=== PATIENT | male | born 1930 | race Caucasian/White ===

== ENCOUNTER 2016-11-29 18:48 | Observation (INO) | payer MEDICARE, OTHER ==
[~2016-11-29] VITALS: Ht 190.5 cm; Wt 69.8 kg
[~2016-11-29 18:48] MED LIST: AMBIEN10 MG PO; BETAPACE 80 MG80 MG PO; CARAFATE1 G PO; ELIQUIS2.5 MG PO; EZFE 200200 MG PO; GLUCOTROL 5 MG T5 MG PO; K-TAB10 MEQ PO; LASIX40 MG PO; LEVAQUIN500 MG PO; LEVOXYL75 MCG PO; PRAVACHOL40 MG PO; PREMARIN0.625 MG PO; PRILOSEC20 MG PO; PROPAFENONE HC300 MG PO; RESTORIL15 MG PO; RESTORIL22.5 MG PO; XARELTO15 MG PO
[2016-11-29 19:16] LABS: APPEARANCE CLEAR (CLEAR); BILIRUBIN NEGATIVE (NEGATIVE); COLOR YELLOW (YELLOW); GLUCOSE NEGATIVE (NEGATIVE); KETONE NEGATIVE (NEGATIVE); LEUKOCYTE ESTERASE NEGATIVE (NEGATIVE); NITRITE NEGATIVE (NEGATIVE); PROTEIN TRACE mg/dL (NEGATIVE); UROBILINOGEN NORMAL (NORMAL)
[2016-11-29 19:43] LABS: BASOPHILS 0.2 % (0-2); EOSINOPHILS 0.7 % (0-7); HEMATOCRIT 26.1 % (42.0-54.0); HEMOGLOBIN 8.4 g/dL (13.5-17.5); IMMATURE GRANULOCYTES 0.3 % (0-5); LYMPHOCYTES 15.8 % (15-50); MCH 28.5 pg (26.0-34.0); MCHC 32.2 g/dL (31.0-37.0); MCV 88.5 fL (80.0-100.0); MEAN PLATELET VOLUME 8.5 fL (7.4-10.4); MONOCYTES 11.2 % (2-11); NEUTROPHILS 71.8 % (40-80); RBC 2.95 10x6/uL (4.20-6.10); RDW 16.3 % (11.5-14.5)
[2016-11-29 19:47] LABS: PLATELET COUNT 447 10x3/uL (130-400)
[2016-11-29 20:13] LABS: KETONE - SERUM NEGATIVE (NEGATIVE)
[2016-11-29 21:21] LABS: ALBUMIN 2.7 g/dL (3.4-5.0); ALKALINE PHOSPHATASE 48 U/L (46-116); ALT (SGPT) 11 U/L (10-68); CALC OSMOLALITY 285 mosm/kg (275-300); CALCIUM 9.3 mg/dL (8.5-10.1); CARBON DIOXIDE 27.1 mmol/L (21.0-32.0); CHLORIDE - SERUM 100 mmol/L (98-107); CREATININE - SERUM 1.4 mg/dL (0.6-1.3); POTASSIUM - SERUM 3.6 mmol/L (3.5-5.1); PROTEIN - SERUM 7.4 g/dL (6.4-8.2); SODIUM 139 mmol/L (136-145); UREA NITROGEN 28 mg/dL (7-18); eGFR NON AFRICAN AMERICAN 51 mL/min (90-120)
[2016-11-29 21:22] LABS: GLUCOSE 137 mg/dL (74-106)
--- NOTE | 2016-11-29 22:16 | NUR ---
REPORT RECEIVED FROM [facility] FROM ER. PT WILL COME TO ROOM 2106 VIA WHEELCHAIR WITH FAMILY AT SIDE
--- NOTE | 2016-11-29 22:42 | NUR ---
PT ARRIVED TO ROOM 2106 VIA WHEEL CHAIR. ASSISTED BY HOSPITAL STAFF AND FAMILY. PT AMBULATED TO BED WITH X2 ASSIST. PT HAS A 20G IV S/L ON LEFT FOREARM. PT IN PJ'S AND SLIP ON SHOES. FAMILYS NUMBERS FOR EMERGENCYS OBTAINED SILVANA (DAUGHTER) [phone] FIRST CONTACT SECOND IS RALF' [phone]. PT DENIES ANY NEEDS. NO S/S OF DISTRESS. BED LOW AND CALL LIGHT WITHIN REACH. WILL CPOC
--- NOTE | 2016-11-30 01:37 | NUR ---
PT RESTING IN BED. ASSESSMENT DONE. PT DENIES ANY PAIN AT THIS TIME. STATES HE WILL CALL WHEN WANTS HIS PAIN PILL..PT IS 6'3 INCHES TALL. PULLED UP IN BED AND REPOSITIONED. PT HAS A URINAL AT BED SIDE TO USE AND VERBALIZED UNDERSTANDING WHEN TALKING ABOUT NOT GETTING OUT OF BED ALONE. PT GIVEN A SANDWINCH AND MILK FOR A SNACK R/T PT BEING HUNGRY. V/S WITHIN NORMAL RANGE. PT DENIES ANY NEEDS. NO S/S OF DISTRESS. WILL CPOC
[2016-11-30 04:09] VITALS: BP 148/84; BMI 19.7
[2016-11-30 05:00] VITALS: BP 127/79
--- NOTE | 2016-11-30 07:30 | NUR ---
AM ROUNDS- PT'S CALL LIGHT ON. PT WANTS HELP USING URINAL, HELPED PT TO STAND UP AND USE URINAL. PT ALSO C/O PAIN 10/12, ADMINISTERED 5MG OG NORCO AT THIS TIME. HELPED PT BACK TO BED, AND REPOSITIONED HIM IN BED. PT DENIES ANY NEEDS AT THIS TIME. BED LOW AND WHEELS LOCKED, BEDSIDE RAILS X2, LT FA IV SL. RESP EVEN AND UNLABORED. PT DENIES ANY OTHER NEEDS AT THIS TIME. CALL LIGHT IN REACH, NAD NOTED, WILL CONTINUE TO MONITOR.
[2016-11-30] MEDS ORDERED: FLORINEF 0.1 M0.1 MG PO (07:46)
[2016-11-30] MEDS ORDERED: MEGACE400 MG/10 PO (07:46)
[2016-11-30] MEDS ORDERED: GLUCOPHAGE500 MG PO (07:47)
[2016-11-30] MEDS ORDERED: ARICEPT5 MG PO (07:48)
[2016-11-30] MEDS ORDERED: ULTRAM50 MG PO (07:48)
[2016-11-30 08:00] VITALS: BP 152/69
--- NOTE | 2016-11-30 08:41 | NUR ---
AM MEDS GIVEN CRUSHED AND IN APPLE SAUCE. PT KEEPS ASKING " WHAT AM I SUPPOSE TO DO". HELPED PT REPOSITION IN BED. PT WANTS TO GET A HOLD OF DAUGHTER, [employer] CONSULTANT CALLED AND LEFT VOICEMAIL. PT DENIES ANY OTHER NEEDS AT THIS TIME. CALL LIGHT IN REACH, NAD NOTED, WILL CONTINUE TO MONITOR.
--- NOTE | 2016-11-30 11:19 | NUR ---
NORCO 5MG GIVEN FOR PAIN LEVEL OF 10/10. PT UP TO SIDE OF BED, SEEMS VERY CONFUSED, STATES " I HAVE TO GO HOME, I CAN NOT HANDLE BEING HERE". INFORMED PT THAT HE IS IN THE HOSPITAL. PT DENIES ANY OTHER NEEDS AT THIS TIME. CALL LIGHT IN REACH, NAD NOTED, WILL CONTINUE TO MONITOR.
[2016-11-30 12:00] VITALS: BP 119/60
[2016-11-30 12:20] VITALS: Ht 190.5 cm; Wt 69.8 kg
[2016-11-30 16:00] VITALS: BP 135/74
--- NOTE | 2016-11-30 16:34 | NUR ---
NORCO 5MG GIVEN FOR PAIN LEVEL OF 7/10. PT UP TO SIDE OF BED, FAMILY AT BEDSIDE, NAD NOTED, WILL CONTINUE TO MONITOR.
--- NOTE | 2016-11-30 19:10 | NUR ---
3MG OF MORPHINE GIVEN FOR PAIN LEVEL OF 7/10. PT DENIES ANY OTHER NEEDS AT THIS TIME. FAMILY AT BEDSIDE, NAD NOTED, WILL CONTINUE TO MONITOR.
[2016-11-30 20:08] VITALS: BP 125/83
--- NOTE | 2016-11-30 20:26 | NUR ---
NIGHT TIMES MEDS GIVEN AT THIS TIME. PT DENIES ANY NEEDS AT THIS TIME. FAMILY AT BEDSIDE, NAD NOTED, WILL CONTINUE TO MONITOR.
--- NOTE | 2016-11-30 22:25 | NUR ---
NO CHANGE FROM PREVIOUS ASSESMENT. PT IN BED, WITH EYES CLOSED, RESP EVEN AND UNLABORED. CALL LIGHT IN REACH, NAD NOTED, WILL CONTINUE TO MONITOR.
[2016-12-01] VITALS (16 sets, daily range): BP systolic 117–149; BP diastolic 63–81
[2016-12-01 04:54] LABS: BASOPHILS 0.1 % (0-2); EOSINOPHILS 0.8 % (0-7); HEMATOCRIT 24.8 % (42.0-54.0); HEMOGLOBIN 8.1 g/dL (13.5-17.5); IMMATURE GRANULOCYTES 0.3 % (0-5); LYMPHOCYTES 17.6 % (15-50); MCH 28.8 pg (26.0-34.0); MCHC 32.7 g/dL (31.0-37.0); MCV 88.3 fL (80.0-100.0); MEAN PLATELET VOLUME 8.8 fL (7.4-10.4); MONOCYTES 12.8 % (2-11); NEUTROPHILS 68.4 % (40-80); PLATELET COUNT 364 10x3/uL (130-400); RBC 2.81 10x6/uL (4.20-6.10); RDW 16.4 % (11.5-14.5)
[2016-12-01 05:01] LABS: ANION GAP 11.2 mmol/L (8-16); CALCIUM 8.7 mg/dL (8.5-10.1); CARBON DIOXIDE 28.4 mmol/L (21.0-32.0); CREATININE - SERUM 1.2 mg/dL (0.6-1.3); POTASSIUM - SERUM 3.6 mmol/L (3.5-5.1)
--- NOTE | 2016-12-01 06:22 | HP ---
PATIENT: ABHAY THORNTON MEDICAL RECORD: [id number] ACCOUNT: [id number] LOCATION:D. D.2106 : 29 ADMISSION DATE: 11/29/16 HISTORY AND PHYSICAL EXAMINATION DATE OF ADMISSION: 11/30/2016 CHIEF COMPLAINT: Left flank pain. HISTORY OF PRESENT ILLNESS: The patient is an 86-year-old gentleman who for the past month has complained of intermittent pain in the left flank. He presented to the Emergency Room where he was found to have mild hydronephrosis on the left. No evidence of stone, otherwise, CT of the abdomen and pelvis unremarkable. It was felt that the patient should be admitted. PAST MEDICAL HISTORY: Significant that he has had a history of hypertension. 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 He has also had atrial fibrillation, diabetes mellitus. He has had congestive heart failure, hyperlipidemia, anemia. He has had an abnormal gait, chronic kidney disease, mild BPH. PAST SURGICAL HISTORY: He had an EGD with dilatation in 2008. FAMILY HISTORY: Mother had cerebrovascular accident at 85. Father had heart disease at 67. MEDICATIONS: Include fludrocortisone 0.1 mg p.o. every day. He is also on Lasix 40 mg p.o. b.i.d., glimepiride 5mg 1 p.o. q. day, iron 200 mg p.o. b.i.d., levothyroxine 75 mcg once a day, metformin 500 mg 1 tablet b.i.d., omeprazole 40 mg once a day, KCl 10 mEq 1 p.o. b.i.d., Pravastatin 40 mg once a day, Premarin 0.65 one p.o. every day, sotalol 80 mg p.o. b.i.d., Carafate 1 g before meals and at bedtime, donepezil 5 mg p.o. q. day. ALLERGIES: He has known drug allergies. SOCIAL HISTORY: The patient was born and raised in [place] area. He is a retired from construction. HABITS: None. 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 REVIEW OF SYSTEMS: CONSTITUTIONAL: He denies any headaches, seizure or syncope. Denied change in visual or auditory acuity. PULMONARY: He denies any shortness of breath, cough, congestion, history of asthma or bronchitis. CARDIOVASCULAR: No chest pain, palpitation, PND or orthopnea. GASTROINTESTINAL: No chronic nausea, vomiting, melena or hematochezia. GENITOURINARY: No urgency, frequency, or dysuria. PHYSICAL EXAMINATION: GENERAL: He is afebrile. VITAL SIGNS: His blood pressure 148/84, pulse ox 96% on room air. He is afebrile. His pulse is 77. GENERAL: He is alert and oriented times 3. HEENT: Head is normocephalic. No lesions. Ears, TMs clear. Eyes, pupils HISTORY AND PHYSICAL [id number] CAUGHMAN,ABHAY JONATHAN equal, round and reactive to light. His extraocular movements are intact. Nasal cavity, oral cavity and oropharynx clear. NECK: Supple. There is no adenopathy. HEART: Has a regular rate and rhythm without any murmurs, gallops or rubs. LUNGS: Clear. ABDOMEN: Soft, bowel sounds are positive. He has left CVA tenderness. He has no edema. LABORATORY DATA: His white count was 9, hemoglobin 8.4, hematocrit 26.1, his platelets were 447. He had a sodium of 139, potassium 3.6, chloride 100, CO2 is 27, BUN is 28, creatinine 1.4, blood sugar 137. Urinalysis showed trace protein. He has no leukocytes, no blood can be appreciated. CT scan did reveal focal mild left hydroureter without obstructing calculus. ASSESSMENT: 1. 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 2. History of diabetes mellitus, history of atrial fibrillation, congestive heart failure, anemia, history of arteriovenous malformation of the small intestines. PLAN: The patient will be admitted for pain control. Urology consultation will be obtained. The patient will also receive 1 unit of packed red blood cells, IV hydration as well as pain control. TRANSINT:[id number] Voice Confirmation ID: [id number] DOCUMENT ID: [id number] SCOTT STONE MD at 0622 CC: [id number] DICTATION DATE: 11/30/16720 PLASTICS PLATER: 11/30/16 0912 [facility] IN [place] [id number] [place] [address]
--- NOTE | 2016-12-01 17:51 | NUR ---
ALERT. SITUATIONAL CONFUSION. FAMILY AT BEDSIDE. SITTING ON SIDE OF BED. INITIATE UNIT 1 PRBC TRANSFUSION. START TRANSFUSION RATE AT 100mL/HR FOR FIRST 15MINS. REMAIN IN ROOM FIRST 15 MINS TO MONITOR FOR ANY REACTION. T-98, R-18, P-83, BP-141/78. BED LOCKED AND LOW. CALL LIGHT IN REACH. TWO SIDERAILS UP.
--- NOTE | 2016-12-01 18:42 | NUR ---
20 GAUGE IV PLACED TO RIGHT FOREARM X 1 STICK. GOOD BLOOD RETURN, EASY FLUSH. TAPED, DATED AND SECURED. PATIENT TOLERATED IV PLACEMENT WELL. BLOOD INFUSING ORDERED AT THIS TIME. CALL LIGHT WITHIN REACH.
--- NOTE | 2016-12-01 19:16 | NUR ---
Received patient in bed with 1st Unit of PRBC infusing into lower right arm PIV. Slight leakage at PIV insertion site, no signs of infiltration. Patient denies any pain or discomfort. VSS and being checked per protocol. Awake and lert at this time. Oriented to person, place, time and situation. Will continue to monitor.
--- NOTE | 2016-12-01 21:15 | NUR ---
First Unit of PRBC has infused. No untoward signs or symptoms, patient states he is feeling well. VS have remained stable throughout process.
--- NOTE | 2016-12-01 23:55 | NUR ---
Assisted up to BR, voided, ready for Second Unit of PRBCs, VS taken T = 98.6 P = 82, R = 18, BP = 148/81. Second Unit started.
[2016-12-02] VITALS (12 sets, daily range): BP systolic 118–148; BP diastolic 63–80
--- NOTE | 2016-12-02 02:45 | NUR ---
Blood has transfused. VS remain stable, no voiced complaints. Patient remains asymptomatic. Will order lab recheck in the morning.
--- NOTE | 2016-12-02 04:51 | NUR ---
Patient sleeping, respirations easy and regular, no signs of distress. IV infusing of 1/2NS with 20mEq KCL @50ml/hr. PIV in right lower arm has dried drainage in transparent dressing, no signs of infiltration. Checked with saline flush, good blood return and flushes well.
--- NOTE | 2016-12-02 04:54 | NUR ---
No need to reorder Hgb and Hct this morning, already has orders for CBC and BMP this morning.
[2016-12-02 05:08] LABS: BASOPHILS 0.2 % (0-2); EOSINOPHILS 1.1 % (0-7); HEMATOCRIT 28.7 % (42.0-54.0); HEMOGLOBIN 9.8 g/dL (13.5-17.5); IMMATURE GRANULOCYTES 0.3 % (0-5); LYMPHOCYTES 17.2 % (15-50); MCH 29.3 pg (26.0-34.0); MCHC 34.1 g/dL (31.0-37.0); MCV 85.9 fL (80.0-100.0); MEAN PLATELET VOLUME 8.5 fL (7.4-10.4); MONOCYTES 10.9 % (2-11); NEUTROPHILS 70.3 % (40-80); PLATELET COUNT 350 10x3/uL (130-400); RBC 3.34 10x6/uL (4.20-6.10); RDW 16.9 % (11.5-14.5); WBC 8.7 10x3/uL (4.8-10.8)
[2016-12-02 05:16] LABS: CALC OSMOLALITY 278 mosm/kg (275-300); CALCIUM 8.6 mg/dL (8.5-10.1); CARBON DIOXIDE 25.5 mmol/L (21.0-32.0); CHLORIDE - SERUM 101 mmol/L (98-107); GLUCOSE 104 mg/dL (74-106); SODIUM 138 mmol/L (136-145); UREA NITROGEN 21 mg/dL (7-18); eGFR NON AFRICAN AMERICAN 75 mL/min (90-120)
[2016-12-02] MEDS ORDERED: RELAFEN500 MG PO (07:13)
[2016-12-02] MEDS ORDERED: TYLENOL W/CODEI1 TAB PO (07:16)
--- NOTE | 2016-12-02 12:00 | NUR ---
ALERT AND ORIENTED TO SELF. VERY FORGETFUL. RT FA IV INFILTRATED. DC RT FA IV TIP INTACT. DISCHARGE INSTRUCTIONS GIVEN TO JYOTHI NEIL VIA TELEPHONE. DISCHARGE PAPERS SIGNED ON CHART. WRITTEN PRESCRIPTION FOR TYLENOL THREE PROVIDED. ESCORT TO RIDE VIA WHEELCHAIR. REMAINS FREE FROM INJURY.
== END 2016-12-02 14:49 | disposition home or self-care (01) ==
LOC: D.ER 18:48 → D.M2 21:49 → OBSVTIME 21:49 → D.M2 21:49
PROVIDERS: Emergency Medicine; ADMIT Family Medicine
DX: M48.06 Spinal stenosis, lumbar region (principal); M46.96 Unspecified inflammatory spondylopathy, lumbar region; N13.4 Hydroureter; I48.91 Unspecified atrial fibrillation; I11.0 Hypertensive heart disease with heart failure; I50.9 Heart failure, unspecified; E78.5 Hyperlipidemia, unspecified; D64.9 Anemia, unspecified; F10.21 Alcohol dependence, in remission

== ENCOUNTER 2016-12-12 08:16 | Inpatient (IN) | payer MEDICARE, OTHER ==
[~2016-12-12] VITALS: Ht 190.5 cm; Wt 71.7 kg
[2016-12-12] VITALS (9 sets, daily range): BP systolic 123–146; BP diastolic 60–83; BMI 19.7
[~2016-12-12 08:16] MED LIST changes: +ARICEPT5 MG PO; +FLORINEF 0.1 M0.1 MG PO; +GLUCOPHAGE500 MG PO; +MEGACE400 MG/10 PO; +RELAFEN500 MG PO; +TYLENOL W/CODEI1 TAB PO; +ULTRAM50 MG PO
[2016-12-12 09:15] LABS: BASOPHILS 0.1 % (0-2); EOSINOPHILS 0 % (0-7); HEMATOCRIT 33.6 % (42.0-54.0); HEMOGLOBIN 10.9 g/dL (13.5-17.5); IMMATURE GRANULOCYTES 0.2 % (0-5); LYMPHOCYTES 9.4 % (15-50); MCH 28.7 pg (26.0-34.0); MCHC 32.4 g/dL (31.0-37.0); MCV 88.4 fL (80.0-100.0); MEAN PLATELET VOLUME 8.8 fL (7.4-10.4); MONOCYTES 4.2 % (2-11); NEUTROPHILS 86.1 % (40-80); PLATELET COUNT 297 10x3/uL (130-400); RDW 16.6 % (11.5-14.5); WBC 10.8 10x3/uL (4.8-10.8)
[2016-12-12 09:25] LABS: INR 1.04 (0.85-1.17); PROTIME 13.5 SECONDS (11.6-15.0)
[2016-12-12 09:33] LABS: BILIRUBIN - TOTAL 0.84 mg/dL (0.2-1.3); CALCIUM 9.3 mg/dL (8.5-10.1); CARBON DIOXIDE 20.8 mmol/L (21.0-32.0); CREATININE - SERUM 1.5 mg/dL (0.6-1.3); POTASSIUM - SERUM 3.8 mmol/L (3.5-5.1); PROTEIN - SERUM 8.2 g/dL (6.4-8.2)
[2016-12-12 09:37] LABS: MAGNESIUM - SERUM 2.3 mg/dL (1.8-2.4)
--- NOTE | 2016-12-12 14:14 | NUR ---
BIOPSY FORCEPS USED TO CHECK FOR STRICTURE, NO BIOPSY TAKEN. BASKET USED TO REMOVE MULTIPLE FOOD PARTICLES FROM ESOPHAGUS
--- NOTE | 2016-12-12 15:00 | NUR ---
PATIENT TO ROOM AT THIS TIME WITH IV INTACT. NO COMPLAINTS AT THIS TIME. VS STABLE. FAMILY AT BEDSIDE. CALL LIGHT WITHIN REACH.
--- NOTE | 2016-12-12 18:49 | NUR ---
PATIENT IN BED WITH IV INTACT. FAMILY AT BEDSIDE. BED ALARM ON. CALL LIGHT WITHIN REACH.
--- NOTE | 2016-12-12 23:26 | NUR ---
PT'S SON LEFT FOR THE NIGHT. PT FREQUENTLY TRYING TO CLIMB OUT OF BED. SHORT TERM MEMORY LOSS. REORIENT FREQUENTLY AND EXPLAIN TO HIM WHY HE HAS TO BE NPO. GIVING HIM MOIST SPONGES FOR MOUTH. WILL CONTINUE TO MONITOR. BED ALARM ON AND WORKING.
[2016-12-13 00:52] VITALS: BP 142/72
[2016-12-13 04:00] VITALS: BP 148/73
--- NOTE | 2016-12-13 06:40 | NUR ---
PT HAS NOT SLEPT ALL NIGHT. KEEPS TRYING TO CLIMB OUT OF BED. CONSTANTLY ASKS FOR SOMETHING TO EAT OR DRINK. DOES NOT UNDERSTAND WHY HE HAS TO BE NPO. WE CONTINUE TO EXPLAIN EVERY TIME HE ASKS. STOOD PT UP BESIDE BED TO VOID 4 TIMES. PT IS UNSTEADY AND LEANS HEAVILY ON NURSE TO STAND. PUT PT ON BEDSIDE COMMODE ONCE FOR BM BUT HE DID NOT HAVE ONE. PT DOES NOT UNDERSTAND WHY HE CANNOT GET OUT OF BED WHENEVER HE WANTS. TEACHING ON FALL PRECAUTIONS. BED ALARM ON AND WORKING. INSTRUCT HAT BODY INSPECTOR LIGHT EACH TIME NURSE LEAVES ROOM.
[2016-12-13 06:45] LABS: BASOPHILS 0 % (0-2); EOSINOPHILS 0 % (0-7); HEMATOCRIT 31.4 % (42.0-54.0); HEMOGLOBIN 10.1 g/dL (13.5-17.5); IMMATURE GRANULOCYTES 0.2 % (0-5); LYMPHOCYTES 5.5 % (15-50); MCH 28.4 pg (26.0-34.0); MCHC 32.2 g/dL (31.0-37.0); MCV 88.2 fL (80.0-100.0); MEAN PLATELET VOLUME 9.5 fL (7.4-10.4); MONOCYTES 3.1 % (2-11); NEUTROPHILS 91.2 % (40-80); PLATELET COUNT 300 10x3/uL (130-400); RBC 3.56 10x6/uL (4.20-6.10); RDW 16.7 % (11.5-14.5)
[2016-12-13 06:51] LABS: ANION GAP 15.3 mmol/L (8-16); CALCIUM 8.8 mg/dL (8.5-10.1); CREATININE - SERUM 1.4 mg/dL (0.6-1.3); POTASSIUM - SERUM 3.3 mmol/L (3.5-5.1)
[2016-12-13 06:54] LABS: PROTIME 15.6 SECONDS (11.6-15.0)
[2016-12-13 06:57] LABS: INR 1.25 (0.85-1.17)
--- NOTE | 2016-12-13 07:00 | NUR ---
REPORT RECIEVED ASSUMED CARE. PATIENT IN BED WITH IV INTACT. CALL LIGHT WITHIN REACH.
[2016-12-13 08:15] VITALS: BP 163/75
[2016-12-13 11:32] LABS: APPEARANCE HAZY (CLEAR); COLOR DK YELLOW (YELLOW); GLUCOSE NEGATIVE (NEGATIVE); KETONE NEGATIVE (NEGATIVE); LEUKOCYTE ESTERASE TRACE (NEGATIVE); NITRITE NEGATIVE (NEGATIVE); PH 5.5 (5.0-6.0); PROTEIN 3+ mg/dL (NEGATIVE)
[2016-12-13 11:33] LABS: BILIRUBIN NEGATIVE (NEGATIVE); UROBILINOGEN NORMAL (NORMAL)
[2016-12-13 11:45] LABS: AMORPHOUS SEDIMENT <1+ /lpf (NONE SEEN); BACTERIA MODERATE /hpf (NONE SEEN); EPITHELIAL CELLS 0-5 /hpf (0-5); GRANULAR CAST OCC /lpf (NONE SEEN); HYALINE CAST OCC /lpf (NONE SEEN); MUCUS <1+ /lpf (NONE SEEN); RED CELLS - URINE 0-5 /hpf (0-5)
[2016-12-13 13:04] VITALS: BP 160/85
[2016-12-13 15:58] VITALS: BP 166/92
--- NOTE | 2016-12-13 16:14 | NUR ---
IV RESTARTED IN LEFT WRIST X 3 STICKS. PATIENT TOLERATED WITH SMALL AMOUNT OF PAIN. IV IN LEFT AC REMOVED DUE TO LEAKING AND PAIN. CATH TIP INTACT. FAMILY AT BEDSIDE. CALL LIGHT WITHIN REACH.
--- NOTE | 2016-12-13 18:41 | NUR ---
PATIENT IN BED WITH IV INTACT. TRYING TO GET OUT OF BED. BA ON. EXPLAINED TO PATIENT HE CAN NOT GET UP WITHOUT ASSIST. PATIENT CONFUSED AND DEMENTED. VERBALIZED UNDERSTANDING. WILL CONTINUE TO MONITOR. CALL LIGHT WITHIN REACH.
[2016-12-13 19:00] VITALS: BP 152/82
[2016-12-14 04:00] VITALS: BP 186/81
[2016-12-14 05:52] LABS: ALBUMIN 2.5 g/dL (3.4-5.0); ANION GAP 15.5 mmol/L (8-16); BILIRUBIN - TOTAL 0.66 mg/dL (0.2-1.3); CALCIUM 9.1 mg/dL (8.5-10.1); CARBON DIOXIDE 22.7 mmol/L (21.0-32.0); CREATININE - SERUM 1.1 mg/dL (0.6-1.3); POTASSIUM - SERUM 3.2 mmol/L (3.5-5.1); PROTEIN - SERUM 7.1 g/dL (6.4-8.2)
--- NOTE | 2016-12-14 07:05 | NUR ---
REPORT RECIEVED, ASSUMED CARE OF PT. PT RESTING WITH EYES SHUT. NO SIGNS OF ACUTE DISTRESS. BED IN LOWEST POSITION, SIDE RAILS UP X 2, CALL LIGHT WITHIN REACH.
[2016-12-14 07:12] LABS: BASOPHILS 0 % (0-2); EOSINOPHILS 0 % (0-7); HEMATOCRIT 30.7 % (42.0-54.0); HEMOGLOBIN 10.1 g/dL (13.5-17.5); IMMATURE GRANULOCYTES 0.2 % (0-5); LYMPHOCYTES 10.7 % (15-50); MCH 28.9 pg (26.0-34.0); MCHC 32.9 g/dL (31.0-37.0); MCV 87.7 fL (80.0-100.0); MEAN PLATELET VOLUME 9.4 fL (7.4-10.4); MONOCYTES 6.8 % (2-11); NEUTROPHILS 82.3 % (40-80); PLATELET COUNT 280 10x3/uL (130-400); RDW 16.6 % (11.5-14.5); WBC 12.6 10x3/uL (4.8-10.8)
[2016-12-14 09:26] VITALS: BP 153/86
[2016-12-14 12:47] VITALS: BP 143/84
--- NOTE | 2016-12-14 13:00 | NUR ---
PT RESTING IN BED, NO CHANGE FROM SHIFT ASSESSMEN. FAMILY AT BED SIDE. NO COMPLAINTS AT THIS TIME. BED IN LOWEST POSITION, SIDE RAILS UP X 2, CALL LIGHT WITHIN REACH.
[2016-12-14 14:52] VITALS: Ht 190.5 cm; Wt 71.7 kg
[2016-12-14 16:55] VITALS: BP 147/80
--- NOTE | 2016-12-14 17:08 | NUR ---
Patient Name: ABHAY THORNTON Admission Status: ER Accout number: [id number] Admission Date: 12-12-2016 : 1929 Admission Diagnosis: Attending: SCOTT STONE Current LOS: 2 Anticipated DC Date: 12-16-2016 Planned Disposition: Home with Hospice Primary Insurance: MEDICARE A & B Discharge Planning Comments: CM MET WITH PATIENTS DAUGHTER (SILVANA) AND SON (GUILLERMINA) REGARDING D/C NEEDS AND PLANS. PATIENT IS CURRENTLY ON HOSPICE WITH HOSPICE HOME CARE AT HIS HOME. PATIENTS DAUGHTER SILVANA IS POA AND CAREGIVER IN HIS HOME. PATIENTS PCP IS DR. STONE AND DR. YULIA MOORE IS HIS HOSPICE PHYSICIAN. PATIENT WILL RETURN HOME ON HOSPICE PER DAUGHTER AFTER SURGERY FOR HIS ESOPHAGEAL OBSTRUCTION. DAUGHTER DOES NOT WANT ANY TUBE FEEDINGS SHE STATED IF THAT IS RECOMMENDED. CM WILL CONTINUE TO FOLLOW PATIENT WITH D/C NEEDS AND PLANS. PCP DR. CHASE MOORE HOSPICE PHYSICIAN SILVANA (DAUGHTER) [phone] OR [phone] GUILLERMINA (SON) [phone] Facilities Project Manager: Ani Cook Is the patient Alert and Oriented? No 0 * How many steps to enter\exit or inside your home? 0 0 * PCP DR. STONE PCP DR. YULIA MOORE [facility] 0 * Pharmacy HOSPICE HOME CARE 0 * Preadmission Environment Hospice 0 * ADLs Total Dependent 0 * Other Equipment HOSPICE PROVIDES ALL EQUIPMENT NEEDED 0 * List name and contact numbers for known caregivers / representatives who currently or will assist patient after discharge: SILVANA FERNANDES (DAUGHTER-CAREGIVER AND POA) [phone] OR [phone] GUILLERMINA (SON) [phone] * Community resources currently utilized None 0 * Please name any agencies selected above. HOSPICE HOME CARE 0 * Additional services required to return to the preadmission environment? Yes 0 * Can the patient safely return to the preadmission environment? Yes 0 * Has this patient been hospitalized within the prior 30 days at any hospital? Yes 0 Grand Total: 0
--- NOTE | 2016-12-14 19:20 | NUR ---
PT RETURNED FROM GI LAB, INSTRUCTED PT NEEDED ICE CHIPS ONLY TONIGHT, PT WAS ABLE TO URINATE 200CC 3 PERSON ASSIST, PT DOES NEED TO BE SUCTIONED BECAUSE MUCUS IS VERY THICK. NO OTHER NEEDS AT THIS TIME WILL CONTINUE TO MONITOR
--- NOTE | 2016-12-14 19:39 | NUR ---
PT BACK FROM EGD. FAMILY AT BEDSIDE. NO SIGNS OF ACUTE DISTRESS. BED IN LOWEST POSITION, SIDE RAILS UP X 2, CALL LIGHT WITHIN REACH.
[2016-12-15] VITALS: BP 151/86
[2016-12-15 04:00] VITALS: BP 154/80
[2016-12-15 04:47] LABS: BASOPHILS 0 % (0-2); EOSINOPHILS 0.7 % (0-7); HEMATOCRIT 29.5 % (42.0-54.0); HEMOGLOBIN 9.5 g/dL (13.5-17.5); IMMATURE GRANULOCYTES 0.2 % (0-5); LYMPHOCYTES 12.5 % (15-50); MCH 28.4 pg (26.0-34.0); MCHC 32.2 g/dL (31.0-37.0); MCV 88.3 fL (80.0-100.0); MEAN PLATELET VOLUME 9.3 fL (7.4-10.4); MONOCYTES 6.9 % (2-11); NEUTROPHILS 79.7 % (40-80); PLATELET COUNT 217 10x3/uL (130-400); RBC 3.34 10x6/uL (4.20-6.10); RDW 16.7 % (11.5-14.5)
[2016-12-15 04:58] LABS: CALC OSMOLALITY 294 mosm/kg (275-300); CALCIUM 8.4 mg/dL (8.5-10.1); CARBON DIOXIDE 23.8 mmol/L (21.0-32.0); CHLORIDE - SERUM 112 mmol/L (98-107); GLUCOSE 178 mg/dL (74-106); POTASSIUM - SERUM 3.4 mmol/L (3.5-5.1); SODIUM 144 mmol/L (136-145); UREA NITROGEN 25 mg/dL (7-18); eGFR NON AFRICAN AMERICAN 75 mL/min (90-120)
--- NOTE | 2016-12-15 07:30 | NUR ---
RECIEVED REPORT, ASSUMED CARE OF PT. FAMILY AT BEDSIDE. PT RESTING, EASILY AROUSED. L WRIST IV INTACT, PATENT, FLUIDS RUNNING ORDERED, DRSG C/D/I. HOB ELEVATED AT 45 DEGREES. BED ALARM ON, BED IN LOWEST POSITION, SIDE RAILS UP X 2, CALL LIGHT WITHIN REACH.
--- NOTE | 2016-12-15 09:00 | NUR ---
PT FAMILY REQUESTS TO GIVE MEDICATIONS WHEN PT WAKES UP, RESTING, STAYED UP MOST OF THE NIGHT.
--- NOTE | 2016-12-15 09:05 | EC ---
PATIENT:ABHAY THORNTON DATE OF SERVICE: 12/12/16 SEX: M MEDICAL RECORD: [id number] DATE OF : 29 LOCATION:[facility] AGE OF PATIENT: 86 ADMISSION DATE: 12/12/16 REFERRING PHYSICIAN: INTERPRETING PHYSICIAN: AMAYA FRANKLIN MD ECHOCARDIOGRAM REPORT ECHO CHARGES 4 ECHO COMPLETE CLINICAL DIAGNOSIS: CHF ECHOCARDIOGRAPHIC MEASUREMENTS (adult normal given) AC root (d.<3.7cm) 4.2 cm LV Septum d (<1.2 cm> 1.7 cm Valve Excursion 2.3 cm LV Septum (systole) 2.2 cm Left Atria (s.<4.0cm> 3.7 cm LVPW d(<1.2cm) 1.4 cm RV (d.<2.3cm) 2.4 cm LVPW (sytole) 1.9 cm LV diastole(<5.6CM) 5.1 cm MV E-F(>70mm/sec) cm LV systole 4.0 cm LVOT Diameter 2.1 cm MV exc.(>10mm) cm Est.ejection fraction (50-75%) % Pericardial Effusion Y DOPPLER: LVIT cm/sec A 53.0 cm/sec E 45.0 cm/sec LA cm/sec RVSP 44.0 mmHg LVOT 65.0 cm/sec AOP1/2T m/s Asc. Ao 96.0 cm/sec RVOT 61.0 cm/sec RA cm/sec PA 88.0 cm/sec AV Gradient Peak 3.7 mmHg AV Mean 1.8 mmHg AV Area 2.3 cm MV Gradient Peak 2.1 mmHg MV Mean 0.98 mmHg MV Area cm COMMENTS: Trial Consultant: Juan ACKERMANOE Boring Mill Operator For Metal: 4 Dr. Franklin TAPE# PACS DATE OF SERVICE: 12/14/2016 PROCEDURE: Transthoracic echocardiogram. FINDINGS: 1. The left ventricle is shown to have moderate concentric left ventricular hypertrophy. 2. The mitral valve appears to be structurally normal with moderate mitral regurgitation. 3. The left atrium appears to be normal size, normal function and flow ECHOCARDIOGRAM REPORT [id number] ABHAY THORNTON characteristics across the left atrium through the mitral valve and into the left ventricle indicate diastolic dysfunction. 4. The left ventricular wall motion shows asynchronous wall motion. There is evidence of anterior hypokinesis. The overall ejection fraction is 40% to 45%. 5. The aortic valve is normal structure, normal function. 6. The right atrium is moderately dilated. 7. The right ventricle is normal size, normal function. 8. The tricuspid valve has trace tricuspid regurgitation with mild to moderate pulmonary hypertension, peak systolic right ventricular systolic pressure is 44 mmHg. 9. The pulmonic valve has trace pulmonic insufficiency. 10. Pericardium has mild pericardial effusion without any evidence of pericardial tamponade. 11. The IVC is shown to be dilated, but does collapse with inspiration, indicating likely central venous pressures are normal. 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 TRANSINT:[id number] Voice Confirmation ID: [id number] DOCUMENT ID: [id number] AMAYA FRANKLIN MD at 0905 CC: [id number] DICTATION DATE: 12/14/16 1702 COMMUNITY ORGANIZATION AIDE: 12/15/16 0031 ADM IN [place] [address] [place] [address]
[2016-12-15 09:13] VITALS: BP 151/68
--- NOTE | 2016-12-15 10:45 | NUR ---
PT NOT TOLERATING ICE CHIPS WELL AT THIS TIME, FAMILY CONCERNED AND REQUEST PO TO NOT BE GIVEN.
[2016-12-15 10:46] VITALS: BP 154/91
--- NOTE | 2016-12-15 15:49 | NUR ---
PT L WRIST IV WAS "PULLED OUT" DURING LINEN CHANGE. RE-SITED TO L HAND, FLUIDS INFUSING ORDERED.
[2016-12-15 18:18] VITALS: BP 162/59
[2016-12-15 20:00] VITALS: BP 156/87
--- NOTE | 2016-12-15 21:00 | NUR ---
PT RESTING, FAMILY AT BEDSIDE, NO COMPLAINTS AT THIS TIME. BED IN LOWEST POSITION, SIDE RAILS UP X 2, CALL LIGHT WITHIN REACH.
--- NOTE | 2016-12-15 23:07 | NUR ---
PT SLEEPING, EYES SHUT, FAMILY AT BEDSIDE. NO SIGNS OF ACUTE DISTRESS. BED IN LOWEST POSITION, SIDE RAILS UP X 2, CALL LIGHT WITHIN REACH.
[2016-12-16] VITALS: BP 156/83
--- NOTE | 2016-12-16 01:06 | NUR ---
PT AWAKE RAMBLING SPEECH. HOB ELEVATED. GRANDAUGHTER AT BEDSIDE INTERACTING WITH PT. PT IS NO OBVIOUS DISTRESS. RESP REG AND NONLABORED
--- NOTE | 2016-12-16 03:00 | NUR ---
PT STATED HE NEEDED THE BATHROOM. URINAL HELD FOR PT AND HE VOIDED DARK TEA COLORED URINE. PT LINENS CHANGED AND PT REPOSITIONED FOR COMFORT. CAMILA REMAINS AT BEDSIDE.
[2016-12-16 04:00] VITALS: BP 130/80
--- NOTE | 2016-12-16 05:00 | NUR ---
PT HAS HAD A RESTLESS NIGHT SLEEPING ONLY INTERMITTENTLY. HAS BEEN INCONTINENT AND ALSO VOIDING USING THE URINAL PER HIS REQUEST. GRANDDAUGHTER AT BEDSIDE.
[2016-12-16 05:16] LABS: BASOPHILS 0.1 % (0-2); EOSINOPHILS 1.1 % (0-7); HEMATOCRIT 31.8 % (42.0-54.0); HEMOGLOBIN 10.2 g/dL (13.5-17.5); IMMATURE GRANULOCYTES 0.6 % (0-5); LYMPHOCYTES 10.6 % (15-50); MCH 28.3 pg (26.0-34.0); MCHC 32.1 g/dL (31.0-37.0); MCV 88.3 fL (80.0-100.0); MEAN PLATELET VOLUME 9.8 fL (7.4-10.4); MONOCYTES 8.4 % (2-11); NEUTROPHILS 79.2 % (40-80); PLATELET COUNT 200 10x3/uL (130-400); RDW 16.7 % (11.5-14.5)
[2016-12-16 05:37] LABS: CALC OSMOLALITY 289 mosm/kg (275-300); CARBON DIOXIDE 22.1 mmol/L (21.0-32.0); CHLORIDE - SERUM 111 mmol/L (98-107); GLUCOSE 132 mg/dL (74-106); POTASSIUM - SERUM 3.5 mmol/L (3.5-5.1); SODIUM 143 mmol/L (136-145); UREA NITROGEN 21 mg/dL (7-18); eGFR NON AFRICAN AMERICAN 75 mL/min (90-120)
--- NOTE | 2016-12-16 07:00 | NUR ---
PT REC'D FROM ICU NURSE. RESTING IN BED WITH EYES CLOSED. HOB AT 45 DEGREES. EASILY AROUSED. REGULAR HEART RATE AND RHYTHM. LUNG SOUNDS CLEAR TO UPPER LOBES AND DIMINISHED TO BILAT LOWER LOBES. PIV TO L HAND FREE OF REDNESS AND SWELLING UNDER ANEUDY WRAP. ASSISTED PT WITH VOID IN URINAL. APPROXIMATELY 350CC'S OF [place] URINE VOIDED AT THIS TIME. +2 PEDAL PULSES BILAT. ALERT TO SELF, PLACE, AND TIME ONLY. SOMEWHAT EASY TO REORIENT. BED LOW, CALL LIGHT IN REACH, DENIES NEEDS. CPOC.
[2016-12-16 08:09] VITALS: BP 151/76
--- NOTE | 2016-12-16 09:00 | NUR ---
MORNING MEDS PASSED AT THIS TIME. ABLE TO TAKE PILLS WHOLE IN APPLESAUCE WITHOUT DIFFICULTY. PT DRANK 50% OF ENSURE AT THIS TIME WITH SOME ENCOURAGEMENT. HOB AT 60 DEGREES. BED LOW, CALL LIGHT IN REACH, DENIES NEEDS. CPOC
--- NOTE | 2016-12-16 10:05 | NUR ---
CM REASSESSMENT NOTE: PATIENT IS DISCHARGING HOME TODAY BY AMBULANCE/[facility] AT BEDSIDE AND NOTIFIED FAMILY. [facility] WILL BE AT HOME WHEN PATIENT ARRIVES. PATIENT WILL BE RESUMING (HOSPICE HOME CARE) AND THEY WERE NOTIFIED.
--- NOTE | 2016-12-16 10:30 | NUR ---
DC INSTRUCTIONS DISCUSSED AT THIS TIME WITH FAMILY FRIEND. JYOTHI HANLEY, CALLED IN ORDER TO OBTAIN VERBAL CONSENT FOR FAMILY FRIEND TO SIGN DISCHARGE PAPERS. PIV TO L HAND DC'D WITH CATHETER INTACT. SCRUB PANTS PUT ON PT AT THIS TIME. PT VOIDED IN URINAL APPROXIMATELY 300CC'S. BED LOW, CALL REGULO IN RUDI TOLEDO RN PT LOPPER, CALLED AMBULANCE FOR PT [facility].
--- NOTE | 2016-12-16 10:31 | NUR ---
d/c home with hospice at this time.
--- NOTE | 2016-12-16 10:43 | NUR ---
PT ESCORTED OUT VIA STRETCHER BY EMT'S.
== END 2016-12-16 10:43 | disposition home or self-care (01) | DRG 393 ==
LOC: D.OPS 08:16 → D.ER 08:16 → EDSTATUS 09:29 → D.MS 15:06 → D.OPS 15:09 → D.SDCHOLD 12-14 15:22 → D.MS 12-14 15:29
PROVIDERS: Emergency Medicine; Family Medicine; Internal Medicine Gastroenterology; ADMIT Family Medicine
PROC: 0DC58ZZ Extirpation of Matter from Esophagus, Via Natural or Artificial Opening Endoscopic (ICD-10-PCS; 2016-12-12)
PROC: 0DC58ZZ Extirpation of Matter from Esophagus, Via Natural or Artificial Opening Endoscopic (ICD-10-PCS; principal; 2016-12-14 17:00)
DX: T18.128A Food in esophagus causing other injury, initial encounter (principal); J18.9 Pneumonia, unspecified organism; I50.32 Chronic diastolic (congestive) heart failure; K22.0 Achalasia of cardia; K22.2 Esophageal obstruction; R13.10 Dysphagia, unspecified; D64.9 Anemia, unspecified; F03.90 Unspecified dementia, unspecified severity, without behavioral disturbance, psychotic disturbance, mood disturbance, and anxiety; I48.91 Unspecified atrial fibrillation; E11.9 Type 2 diabetes mellitus without complications; K44.9 Diaphragmatic hernia without obstruction or gangrene; I13.10 Hypertensive heart and chronic kidney disease without heart failure, with stage 1 through stage 4 chronic kidney disease, or unspecified chronic kidney disease; E11.22 Type 2 diabetes mellitus with diabetic chronic kidney disease; N18.3 Chronic kidney disease, stage 3 (moderate)